=== PATIENT | female | born 1965 | race Caucasian/White ===

== ENCOUNTER 2017-07-10 11:01 | Inpatient (IN) | payer OTHER ==
[2017-07-10 11:42] VITALS: BMI 23.3
--- NOTE | 2017-07-10 14:08 | HP ---
CIWA Score - CIWA Score Nausea/Vomitin-Mild Nausea/No Vomiting Muscle Tremors: 4-Moderate,w/Arms Extend Anxiety: 4-Mod. Anxious/Guarded Agitation: 4-Moderately Restless Paroxysmal Sweats: 1-Minimal Palms Moist Orientation: 0-Oriented Tacttile Disturbances: 1-Very Mild Itch/Numbness Auditory Disturbances: 0-None Visual Disturbances: 0-None Headache: 2-Mild CIWA-Ar Total Score: 17 Admission ROS BHS - HPI Chief Complaint: withdrawal sx Allergies/Adverse Reactions: Allergies Allergy/AdvReac Type Severity Reaction Status Date / Time No Known Allergies Allergy Verified 07/10/17 14:06 History of Present Illness: 52 years old female with long history of alcohol dependence has depression gastritis is admitted to detox Exam Limitations: No Limitations - Ebola screening Have you traveled outside of the country in the last 21 days: No Have you had contact with anyone from an Ebola affected area: No Have you been sick,other than usual withdrawal symptoms: No Do you have a fever: No - Review of Systems Constitutional: Loss of Appetite, Changes in sleep, Unintentional Wgt. Loss, Unexplained wgt Loss EENT: reports: No Symptoms Reported Respiratory: reports: No Symptoms reported Cardiac: reports: No Symptoms Reported GI: reports: Nausea, Poor Appetite, Poor Fluid Intake, Indigestion, Abdominal cramping : reports: No Symptoms Reported Musculoskeletal: reports: No Symptoms Reported Integumentary: reports: No Symptoms Reported Neuro: reports: Tremors Endocrine: reports: No Symptoms Reported Hematology: reports: No Symptoms Reported Psychiatric: reports: No Sypmtoms Reported, Judgement Intact, Orientated x3, Depressed Other Systems: Reviewed and Negative Patient History - Patient Medical History Hx Anemia: No Hx Asthma: No Hx Chronic Obstructive Pulmonary Disease (COPD): No Hx Cancer: No Hx Cardiac Disorders: No Hx Congestive Heart Failure: No Hx Hypertension: No Hx Hypercholesterolemia: No Hx Pacemaker: No HX Cerebrovascular Accident: No Hx Dementia: No Hx Diabetes: No Hx Gastrointestinal Disorders: Yes Hx Liver Disease: No Hx Genitourinary Disorders: No Hx Sexually Transmitted Disorders: No Hx Renal Disease (ESRD): No Hx Thyroid Disease: No Hx Human Immunodeficiency Virus (HIV): No Hx Hepatitis C: No Hx Depression: Yes Hx Suicide Attempt: No Hx Bipolar Disorder: No Hx Schizophrenia: No - Patient Surgical History Past Surgical History: Yes Hx Neurologic Surgery: No Hx Cataract Extraction: No Hx Cardiac Surgery: No Hx Lung Surgery: No Hx Breast Surgery: No Hx Breast Biopsy: No Hx Abdominal Surgery: Yes (2015) Hx Appendectomy: No Hx Cholecystectomy: No Hx Genitourinary Surgery: No Hx Section: Yes (2016) Hx Orthopedic Surgery: No Hx Hysterectomy: No Anesthesia Reaction: No - Reproductive History Patient is a Female of Child Bearing Age (11 -55 yrs old): Yes Last Menstrual Period: 07/10/16 Patient : No - Smoking Cessation Smoking history: Never smoked Have you smoked in the past 12 months: No Hx Chewing Tobacco Use: No Initiated information on smoking cessation: No - Substance & Tx. History Hx Alcohol Use: Yes Hx Substance Use: No Substance Use Type: Alcohol Hx Substance Use Treatment: No (1st detox) - Substances Abused Alcohol Route: Oral Frequency: Daily Alcohol-whisky Route: Oral Frequency: Daily Amount used: 1 pt. Age of first use: 14 Date of Last Use: 07/10/17 Family Disease History - Family Disease History Family Disease History: Diabetes: Mother, Heart Disease: Mother Admission Physical Exam [facility] - Vital Signs Vital Signs: Vital Signs - 24 hr 07/10/17 11:37 Temperature 98.7 F Pulse Rate 105 H Respiratory 18 Rate Blood Pressure 126/82 - Physical General Appearance: Yes: Appropriately Dressed, Mild Distress, Thin, Tremorous, Irritable, Sweating, Anxious HEENTM: Yes: Hearing grossly Normal, Normal ENT Inspection, Normocephalic, Normal Voice Respiratory: Yes: Chest Non-Tender, Lungs Clear, Normal Breath Sounds, No Respiratory Distress, No Accessory Muscle Use Neck: Yes: Supple, Trachea in good position Breast: Yes: Breasts Symetrical Cardiology: Yes: Regular Rhythm, S1, S2, Tachycardia Abdominal: Yes: Non Tender, Soft, Increased Bowel Sounds Genitourinary: Yes: Within Normal Limits Back: Yes: Normal Inspection Musculoskeletal: Yes: full range of Motion, Gait Steady Extremities: Yes: Normal Inspection, Normal Range of Motion, Non-Tender, Tremors Neurological: Yes: Fully Oriented, Alert, Motor Strength 5/5, Normal Response, Depressed Affect, Other Lymphatic: Yes: Within Normal Limits - Diagnostic (1) Alcohol dependence with uncomplicated withdrawal Current Visit: Yes Status: Acute (2) GERD (gastroesophageal reflux disease) Current Visit: Yes Status: Chronic Qualifiers: Esophagitis presence: without esophagitis Qualified Code(s): K21.9 - Gastro -esophageal reflux disease without esophagitis (3) Depression (emotion) Current Visit: Yes Status: Suspected Qualifiers: Depression Type: dysthymia Qualified Code(s): F34.1 - Dysthymic disorder Cleared for Admission S - Detox or Rehab [facility] Level of Care: Medically Managed Detox Regimen/Protocol: Librium S Breath Alcohol Content Breath Alcohol Content: 0.166 Vital Signs - Vital Signs Vital Signs Refused: No Urine Pregancy Test - Result Urine Test Results: Negative- NO Line Present Urine Drug Screen - Control Is Test Valid: Yes - Results Drug Screen Negative: Yes
[2017-07-10] MEDS ORDERED: P-EPHED 60MG/TRIPROLIDI 2.5MG TABLET PO PRN (14:23)
[2017-07-10] MEDS ORDERED: guaiFENesin/D-METHORPHAN HB 10 ML UNIT-DOSE CUPS PO PRN (14:23)
[2017-07-10] MEDS ORDERED: MAG HYDROX/AL HYDROX/SIMETH 30 ML UNIT-DOSE CUP PO PRN (14:23)
[2017-07-10] MEDS ORDERED: LOPERAMIDE HCL 2 MG CAPSULE PO PRN (14:23)
[2017-07-10] MEDS ORDERED: MENTHOL/PHENOL 1 EACH UD MM PRN (14:23)
[2017-07-10] MEDS ORDERED: MAGNESIUM CITRATE 300 ML BOTTLE PO PRN (14:23)
[2017-07-10] MEDS ORDERED: chlordiazePOXIDE HCL 25 MG CAPSULE PO PRN (14:23)
[2017-07-10] MEDS: THIAMINE HCL 100 MG TABLET (FP) PO SCH (22:14)
[2017-07-10] MEDS: RANITIDINE HCL 150 MG TABLET (FP) PO SCH (22:14)
[2017-07-10] MEDS: chlordiazePOXIDE HCL 25 MG CAPSULE PO SCH (22:15)
[2017-07-10] MEDS: ACETAMINOPHEN 325 MG TABLET (FP) PO PRN (22:19)
[2017-07-10 23:03] LABS: URINE APPEARANCE TURBID; URINE BILIRUBIN NEGATIVE (NEGATIVE); URINE BLOOD NEGATIVE (NEGATIVE); URINE COLOR AMBER; URINE GLUCOSE (UA) NEGATIVE (NEGATIVE); URINE KETONE NEGATIVE (NEGATIVE); URINE LEUK ESTERASE NEGATIVE (NEGATIVE); URINE NITRITE NEGATIVE (NEGATIVE); URINE PROTEIN NEGATIVE (NEGATIVE)
[2017-07-11] MEDS: chlordiazePOXIDE HCL 25 MG CAPSULE PO SCH ×4 (05:54→22:26)
[2017-07-11] MEDS ORDERED: hydrOXYzine PAMOATE 50 MG CAPSULE (FP) PO PRN (09:41)
--- NOTE | 2017-07-11 09:41 | PN ---
S CIWA - CIWA Score Nausea/Vomitin Muscle Tremors: 3 Anxiety: 3 Agitation: 3 Paroxysmal Sweats: 1-Minimal Palms Moist Orientation: 0-Oriented Tacttile Disturbances: 1-Very Mild Itch/Numbness Auditory Disturbances: 1-Very Mild Visual Disturbances: 0-None Headache: 2-Mild CIWA-Ar Total Score: 17 BHS Progress Note (SOAP) Subjective: ALERT,IRRITABLE,ANXIOUS,INTERRUPTED SLEEP,TREMOR Objective: 07/11/17 09:39 Vital Signs Temperature 98.1 F 07/11/17 09:17 Pulse Rate 94 H 07/11/17 09:17 Respiratory Rate 18 07/11/17 09:17 Blood Pressure 138/94 07/11/17 09:17 O2 Sat by Pulse Oximetry (%) EKG SINUS TACHYCARDIA 111/MIN NO CHEST PAIN,NO SOB,NO DIZZINESS Laboratory Last Values Urine Color Aida 07/10/17 20:00 Urine Appearance Turbid 07/10/17 20:00 Urine pH 5.0 (5.0-8.0) 07/10/17 20:00 Ur Specific [place] 1.024 (1.001-1.035) 07/10/17 20:00 Urine Protein Negative (NEGATIVE) 07/10/17 20:00 Urine Glucose (UA) Negative (NEGATIVE) 07/10/17 20:00 Urine Ketones Negative (NEGATIVE) 07/10/17 20:00 Urine Blood Negative (NEGATIVE) 07/10/17 20:00 Urine Nitrite Negative (NEGATIVE) 07/10/17 20:00 Urine Bilirubin Negative (NEGATIVE) 07/10/17 20:00 Urine Urobilinogen 2.0 mg/dL (0.2-1.0) H 07/10/17 20:00 Ur Leukocyte Esterase Negative (NEGATIVE) 07/10/17 20:00 LABS PENDING Assessment: 07/11/17 09:40 WITHDRAWAL SYMPTOM Plan: CONTINUE DETOX
[2017-07-11 10:11] LABS: HEMATOCRIT 29.9 % (32.4-45.2); HEMOGLOBIN 10.2 GM/dL (10.7-15.3); MCH 33.7 pg (25.7-33.7); MCHC 34.1 g/dl (32.0-36.0); MEAN PLT VOLUME 9.8 fl (7.5-11.1); PLATELET COUNT 175 K/MM3 (134-434); RBC 3.02 M/mm3 (3.60-5.2); RDW 15.8 % (11.6-15.6); WHITE BLOOD COUNT 4.2 K/mm3 (4.0-10.0)
[2017-07-11] MEDS: RANITIDINE HCL 150 MG TABLET (FP) PO SCH ×2 (10:23→22:27)
[2017-07-11] MEDS: PRENATAL VITAMINS W/ FOLIC ACID TABLET (FP) PO SCH (10:23)
--- NOTE | 2017-07-11 10:24 | CONSULT ---
[facility] Psychiatric Consult - Data Date of interview: 07/11/17 Admission source: [facility] Identifying data: Pt. is a 52 year old single [place] female, mother of three , and currently unemployed. This is patient's first admission to [facility]. Pt. admitted to for alcohol detox. Substance Abuse History: Following information confirmed with Ms. Mak: Smoking Cessation. Smoking history: Never smoked. Have you smoked in the past 12 months: No. Hx Chewing Tobacco Use: No. Initiated information on smoking cessation: No. - Substance & Tx. History. Hx Alcohol Use: Yes. Hx Substance Use: No. Substance Use Type: Alcohol. Hx Substance Use Treatment: No (1st detox). - Substances Abused. Alcohol. Route: Oral. Frequency: Daily. Alcohol-whisky. Route: Oral. Frequency: Daily. Amount used: 1 pt. Age of first use: 14. Date of Last Use: 07/10/17 Psychiatric History: Pt. denies h/o psychiatric hospitalizations. Pt. reports seeing a psychiatrist one time last year at the [facility] for her anxiety and sleep. States no medication was prescribed and patient did not return to see the psychiatrist again. Pt. denies h/o suicide attemps. Physical/Sexual Abuse/Trauma History: Denies. Mental Status Exam - Mental Status Exam Alert and Oriented to: Time, Place, Person Cognitive Function: Good Patient Appearance: Well Groomed Mood: Anxious, Euthymic Affect: Mood Congruent Patient Behavior: Appropriate, Cooperative Speech Pattern: Appropriate Voice Loudness: Normal Thought Process: Goal Oriented Thought Disorder: Not Present Hallucinations: Denies Suicidal Ideation: Denies Homicidal Ideation: Denies Insight/Judgement: Poor Sleep: Poorly Appetite: Fair Muscle strength/Tone: Normal Gait/Station: Normal Psychiatric Findings - Problem List ([place] 1, 2,3) (1) Substance induced mood disorder Current Visit: Yes Status: Suspected (2) Substance-induced sleep disorder Current Visit: Yes Status: Acute (3) Alcohol dependence with uncomplicated withdrawal Current Visit: Yes Status: Acute - Initial Treatment Plan Initial Treatment Plan: Psychoeducation provided. Detoxification in progress. Benadryl 50mg qhs for sleep. Benefits and side effects discussed. Verbal consent given. Will continue to monitor.
[2017-07-11] MEDS: AMMONIUM LACTATE 12% LOTION 225 GM BOTTLE TP SCH ×2 (11:00→22:27)
[2017-07-11 11:04] LABS: CHLORIDE 101 mmol/L (98-107); POTASSIUM 3.8 mmol/L (3.5-5.1); SODIUM 138 mmol/L (136-145)
[2017-07-11 11:18] LABS: ALBUMIN 2.7 g/dl (3.4-5.0); ALK PHOS 133 U/L (45-117); ANION GAP 9 (8-16); BILIRUBIN,TOTAL 1.6 mg/dL (0.2-1.0); BLOOD UREA NITROGEN 7 mg/dL (7-18); CALCIUM 7.7 mg/dL (8.5-10.1); CO2 28 mmol/L (21-32); CREATININE 0.5 mg/dL (0.55-1.02); GLUCOSE,RANDOM 135 mg/dL (74-106); SGOT/AST 97 U/L (15-37); SGPT/ALT 73 U/L (12-78); TOT PROT 6.4 g/dl (6.4-8.2)
--- NOTE | 2017-07-11 11:43 | EKG ---
Test Reason : Blood Pressure : / mmHG Vent. Rate : 111 BPM Atrial Rate : 111 BPM P-R Int : 146 ms QRS Dur : 074 ms QT Int : 330 ms P-R-T Axes : 041 009 022 degrees QTc Int : 448 ms SINUS TACHYCARDIA LOW VOLTAGE QRS CANNOT RULE OUT ANTERIOR INFARCT , AGE UNDETERMINED ABNORMAL ECG NO PREVIOUS ECGS AVAILABLE Confirmed by ALBIN RUSHING MD ([id number]) on 07/11/2017 11:43:26 AM Referred By: Confirmed By:ALBIN RUSHING MD
[2017-07-11] MEDS: THIAMINE HCL 100 MG TABLET (FP) PO SCH (22:26)
[2017-07-12] MEDS: chlordiazePOXIDE HCL 25 MG CAPSULE PO SCH ×3 (05:50→17:23)
[2017-07-12] MEDS: RANITIDINE HCL 150 MG TABLET (FP) PO SCH ×2 (10:27→22:35)
[2017-07-12] MEDS: PRENATAL VITAMINS W/ FOLIC ACID TABLET (FP) PO SCH (10:27)
[2017-07-12] MEDS: NAPHAZOLINE OD PRN (10:28)
[2017-07-12] MEDS: HYPROMELLOSE OD PRN (10:28)
[2017-07-12] MEDS: [UNRECOGNIZED DRUG - OTHER] OD PRN (10:28)
[2017-07-12] MEDS: MAGNESIUM HYDROX 2400MG/30ML ORAL SUSPENSION 30 ML CUP PO PRN (10:31)
[2017-07-12] MEDS: AMMONIUM LACTATE 12% LOTION 225 GM BOTTLE TP SCH ×2 (10:32→22:36)
--- NOTE | 2017-07-12 10:45 | PN ---
S CIWA - CIWA Score Nausea/Vomitin Muscle Tremors: 3 Anxiety: 3 Agitation: 2 Paroxysmal Sweats: 1-Minimal Palms Moist Orientation: 0-Oriented Tacttile Disturbances: 1-Very Mild Itch/Numbness Auditory Disturbances: 1-Very Mild Visual Disturbances: 0-None Headache: 2-Mild CIWA-Ar Total Score: 16 BHS Progress Note (SOAP) Subjective: ALERT,IRRITABLE,ANXIOUS,INTERRUPTED SLEEP,TREMOR,CONSTIPATION Objective: 07/12/17 10:42 Vital Signs Temperature 98.4 F 07/12/17 09:55 Pulse Rate 107 H 07/12/17 09:55 Respiratory Rate 20 07/12/17 09:55 Blood Pressure 141/82 07/12/17 09:55 O2 Sat by Pulse Oximetry (%) Laboratory Last Values WBC 4.2 K/mm3 (4.0-10.0) 07/11/17 07:00 RBC 3.02 M/mm3 (3.60-5.2) L 07/11/17 07:00 Hgb 10.2 GM/dL (10.7-15.3) L 07/11/17 07:00 Hct 29.9 % (32.4-45.2) L 07/11/17 07:00 MCV 99.0 fl (80-96) H 07/11/17 07:00 MCH 33.7 pg (25.7-33.7) 07/11/17 07:00 MCHC 34.1 g/dl (32.0-36.0) 07/11/17 07:00 RDW 15.8 % (11.6-15.6) H 07/11/17 07:00 Plt Count 175 K/MM3 (134-434) 07/11/17 07:00 MPV 9.8 fl (7.5-11.1) 07/11/17 07:00 Sodium 138 mmol/L (136-145) 07/11/17 07:00 Potassium 3.8 mmol/L (3.5-5.1) 07/11/17 07:00 Chloride 101 mmol/L (98-107) 07/11/17 07:00 Carbon Dioxide 28 mmol/L (21-32) 07/11/17 07:00 Anion Gap 9 (8-16) 07/11/17 07:00 BUN 7 mg/dL (7-18) 07/11/17 07:00 Creatinine 0.5 mg/dL (0.55-1.02) L 07/11/17 07:00 Creat Clearance w eGFR > 60 (>60) 07/11/17 07:00 Random Glucose 135 mg/dL (74-106) H 07/11/17 07:00 Calcium 7.7 mg/dL (8.5-10.1) L 07/11/17 07:00 Total Bilirubin 1.6 mg/dL (0.2-1.0) H 07/11/17 07:00 AST 97 U/L (15-37) H 07/11/17 07:00 ALT 73 U/L (12-78) 07/11/17 07:00 Alkaline Phosphatase 133 U/L (45-117) H 07/11/17 07:00 Total Protein 6.4 g/dl (6.4-8.2) 07/11/17 07:00 Albumin 2.7 g/dl (3.4-5.0) L 07/11/17 07:00 Urine Color Aida 07/10/17 20:00 Urine Appearance Turbid 07/10/17 20:00 Urine pH 5.0 (5.0-8.0) 07/10/17 20:00 Ur Specific [place] 1.024 (1.001-1.035) 07/10/17 20:00 Urine Protein Negative (NEGATIVE) 07/10/17 20:00 Urine Glucose (UA) Negative (NEGATIVE) 07/10/17 20:00 Urine Ketones Negative (NEGATIVE) 07/10/17 20:00 Urine Blood Negative (NEGATIVE) 07/10/17 20:00 Urine Nitrite Negative (NEGATIVE) 07/10/17 20:00 Urine Bilirubin Negative (NEGATIVE) 07/10/17 20:00 Urine Urobilinogen 2.0 mg/dL (0.2-1.0) H 07/10/17 20:00 Ur Leukocyte Esterase Negative (NEGATIVE) 07/10/17 20:00 RPR Titer Nonreactive (NONREACTIVE) 07/11/17 07:00 Assessment: 07/12/17 10:43 WITHDRAWAL SYMPTOM Plan: CONTINUE DETOX,INITIAL GLUCOSE 135,BGM MONITORING,FASTING GLUCOSE IN AM,ANEMIA ON FERROUS SULFATE 325 MGS PO BID
[2017-07-12] MEDS: FERROUS SO4 325 MG TABLET (FP) PO SCH ×2 (12:17→22:35)
[2017-07-12] MEDS: chlordiazePOXIDE 5 MG CAPSULE PO SCH (22:35)
[2017-07-12] MEDS: THIAMINE HCL 100 MG TABLET (FP) PO SCH (22:36)
[2017-07-12] MEDS ORDERED: diphenhydrAMINE HCL 25 MG CAPSULE (FP) PO ONE (22:37)
[2017-07-12] MEDS: diphenhydrAMINE HCL 50 MG CAPSULE PO PRN (22:37)
[2017-07-13] MEDS: diphenhydrAMINE HCL 50 MG CAPSULE PO PRN (00:59)
[2017-07-13] MEDS: chlordiazePOXIDE 5 MG CAPSULE PO SCH ×3 (05:50→17:56)
[2017-07-13] MEDS: RANITIDINE HCL 150 MG TABLET (FP) PO SCH ×2 (10:23→22:35)
[2017-07-13] MEDS: FERROUS SO4 325 MG TABLET (FP) PO SCH ×2 (10:23→22:36)
[2017-07-13] MEDS: PRENATAL VITAMINS W/ FOLIC ACID TABLET (FP) PO SCH (10:23)
[2017-07-13] MEDS: AMMONIUM LACTATE 12% LOTION 225 GM BOTTLE TP SCH ×2 (10:24→23:24)
[2017-07-13] MEDS: HYPROMELLOSE OD PRN ×2 (10:28→22:37)
[2017-07-13] MEDS: [UNRECOGNIZED DRUG - OTHER] OD PRN ×2 (10:28→22:37)
[2017-07-13] MEDS: NAPHAZOLINE OD PRN ×2 (10:28→22:37)
--- NOTE | 2017-07-13 10:29 | PN ---
S Progress Note (SOAP) Subjective: alert,irritable,anxious,interrupted sleep Objective: 07/13/17 10:27 Vital Signs Temperature 97.7 F 07/13/17 04:00 Pulse Rate 93 H 07/13/17 04:00 Respiratory Rate 16 07/13/17 04:00 Blood Pressure 121/76 07/13/17 04:00 O2 Sat by Pulse Oximetry (%) 07/13/17 10:28 fasting glucose pending Assessment: 07/13/17 10:28 withdrawal symptom Plan: continue detox,discharge in am
[2017-07-13] MEDS: MAGNESIUM HYDROX 2400MG/30ML ORAL SUSPENSION 30 ML CUP PO PRN (10:50)
[2017-07-13] MEDS: THIAMINE HCL 100 MG TABLET (FP) PO SCH (22:36)
[2017-07-13] MEDS: chlordiazePOXIDE HCL 10 MG CAPSULE PO SCH (22:36)
[2017-07-14] MEDS: ACETAMINOPHEN 325 MG TABLET (FP) PO PRN (00:05)
[2017-07-14] MEDS: chlordiazePOXIDE HCL 10 MG CAPSULE PO SCH (05:42)
[2017-07-14] MEDS: FERROUS SO4 325 MG TABLET (FP) PO SCH (09:27)
[2017-07-14] MEDS: PRENATAL VITAMINS W/ FOLIC ACID TABLET (FP) PO SCH (09:27)
[2017-07-14] MEDS: [UNRECOGNIZED DRUG - OTHER] OD PRN (09:27)
[2017-07-14] MEDS: RANITIDINE HCL 150 MG TABLET (FP) PO SCH (09:27)
[2017-07-14] MEDS: NAPHAZOLINE OD PRN (09:27)
[2017-07-14] MEDS: HYPROMELLOSE OD PRN (09:27)
--- NOTE | 2017-07-14 09:29 | DS ---
[facility] Detox Discharge Summary Admission Date: 07/10/17 Discharge Date: 07/14/17 - History Present History: Alcohol Dependence - Physical Exam Results Vital Signs: Vital Signs Temperature 97.5 F L 07/14/17 07:39 Pulse Rate 88 07/14/17 07:39 Respiratory Rate 18 07/14/17 07:39 Blood Pressure 127/85 07/14/17 07:39 O2 Sat by Pulse Oximetry (%) Pertinent Admission Physical Exam Findings: withdrawal sx Laboratory Last Values WBC 4.2 K/mm3 (4.0-10.0) 07/11/17 07:00 RBC 3.02 M/mm3 (3.60-5.2) L 07/11/17 07:00 Hgb 10.2 GM/dL (10.7-15.3) L 07/11/17 07:00 Hct 29.9 % (32.4-45.2) L 07/11/17 07:00 MCV 99.0 fl (80-96) H 07/11/17 07:00 MCH 33.7 pg (25.7-33.7) 07/11/17 07:00 MCHC 34.1 g/dl (32.0-36.0) 07/11/17 07:00 RDW 15.8 % (11.6-15.6) H 07/11/17 07:00 Plt Count 175 K/MM3 (134-434) 07/11/17 07:00 MPV 9.8 fl (7.5-11.1) 07/11/17 07:00 Sodium 138 mmol/L (136-145) 07/11/17 07:00 Potassium 3.8 mmol/L (3.5-5.1) 07/11/17 07:00 Chloride 101 mmol/L (98-107) 07/11/17 07:00 Carbon Dioxide 28 mmol/L (21-32) 07/11/17 07:00 Anion Gap 9 (8-16) 07/11/17 07:00 BUN 7 mg/dL (7-18) 07/11/17 07:00 Creatinine 0.5 mg/dL (0.55-1.02) L 07/11/17 07:00 Creat Clearance w eGFR > 60 (>60) 07/11/17 07:00 POC Glucometer 120 UNITS (80-120) 07/14/17 05:43 Random Glucose 135 mg/dL (74-106) H 07/11/17 07:00 Fasting Glucose 136 mg/dL (70-105) H 07/13/17 07:50 Calcium 7.7 mg/dL (8.5-10.1) L 07/11/17 07:00 Total Bilirubin 1.6 mg/dL (0.2-1.0) H 07/11/17 07:00 AST 97 U/L (15-37) H 07/11/17 07:00 ALT 73 U/L (12-78) 07/11/17 07:00 Alkaline Phosphatase 133 U/L (45-117) H 07/11/17 07:00 Total Protein 6.4 g/dl (6.4-8.2) 07/11/17 07:00 Albumin 2.7 g/dl (3.4-5.0) L 07/11/17 07:00 Urine Color [place] 07/10/17 20:00 Urine Appearance Turbid 07/10/17 20:00 Urine pH 5.0 (5.0-8.0) 07/10/17 20:00 Ur Specific [place] 1.024 (1.001-1.035) 07/10/17 20:00 Urine Protein Negative (NEGATIVE) 07/10/17 20:00 Urine Glucose (UA) Negative (NEGATIVE) 07/10/17 20:00 Urine Ketones Negative (NEGATIVE) 07/10/17 20:00 Urine Blood Negative (NEGATIVE) 07/10/17 20:00 Urine Nitrite Negative (NEGATIVE) 07/10/17 20:00 Urine Bilirubin Negative (NEGATIVE) 07/10/17 20:00 Urine Urobilinogen 2.0 mg/dL (0.2-1.0) H 07/10/17 20:00 Ur Leukocyte Esterase Negative (NEGATIVE) 07/10/17 20:00 RPR Titer Nonreactive (NONREACTIVE) 07/11/17 07:00 lab noted - Treatment Hospital Course: Detox Protocol Followed, Detoxed Safely, Responded well, Discharged Condition Good, Rehab Referral Accepted Patient has Accepted a Rehab Referral to: [facility] - Medication Discharge Medications: Ambulatory Orders Naphazoline HCl/Hypromellose [Advanced Eye Relief Redness Dp] 15 ml OP BID PRN 07/11/17 Olopatadine HCl 0.1% Ophth Breanna [Patanol (Nf)] 1 drop IO QID 07/11/17 Ferrous Sulfate [Feosol] 325 mg PO BID #60 ud 07/13/17 Omeprazole 20 mg PO DAILY #30 capsule. 07/13/17 Ranitidine [Zantac -] 150 mg PO BID #60 tablet 07/13/17 - Diagnosis (1) Alcohol dependence with uncomplicated withdrawal Current Visit: Yes Status: Acute (2) GERD (gastroesophageal reflux disease) Current Visit: Yes Status: Chronic Qualifiers: Esophagitis presence: without esophagitis Qualified Code(s): K21.9 - Gastro -esophageal reflux disease without esophagitis (3) Depression (emotion) Current Visit: Yes Status: Suspected Qualifiers: Depression Type: dysthymia Qualified Code(s): F34.1 - Dysthymic disorder (4) Anemia Current Visit: Yes Status: Chronic Qualifiers: Anemia type: iron deficiency Iron deficiency anemia type: inadequate dietary iron intake Qualified Code(s): D50.8 - Other iron deficiency anemias - AMA Did Patient Leave Against Medical Advice: No
[2017-07-14 10:30] VITALS: BP 115/88; PULSE 76; TEMP 98.6
== END 2017-07-14 09:37 | disposition home or self-care (01) | DRG 775 ==
LOC: YASAS 11:01 → Y6N 16:57 → UNDODISIN 07-13 12:34
PROVIDERS: ADMIT Internal Medicine; ATTEND Internal Medicine
PROC: HZ2ZZZZ Detoxification Services for Substance Abuse Treatment (ICD-10-PCS; principal; 2017-07-10)
DX: F10.230 Alcohol dependence with withdrawal, uncomplicated (principal); F19.24 Other psychoactive substance dependence with psychoactive substance-induced mood disorder; F19.282 Other psychoactive substance dependence with psychoactive substance-induced sleep disorder; F34.1 Dysthymic disorder; K21.9 Gastro-esophageal reflux disease without esophagitis; D50.8 Other iron deficiency anemias; R00.0 Tachycardia, unspecified
CPT/HCPCS: 36415; 80053; 81003; 82947; 82962; 85027; 86593; 93005; 93010